=== PATIENT | male | born 1980 | race Caucasian/White ===

== ENCOUNTER 2018-03-30 10:08 | Emergency (ER) | payer OTHER ==
[~2018-03-30] VITALS: Ht 175.3 cm; Wt 84.2 kg
[~2018-03-30 10:08] MED LIST: ASPERDRINK81 MG PO; BUTALB-APAP-CA1 EACH PO; DILAUDID2 MG PO; EFFEXOR37.5 MG PO; KEFLEX500 MG PO; LISINOPRIL10 MG PO; MOTRIN800 MG PO; OXYCODONE HCL5 MG PO; PERCOCET 5/31 TABLET PO; PRAVASTATIN SOD40 MG PO; TRAMADOL HCL50 MG PO; ULTRAM50 MG PO; ZOFRAN ODT8 MG PO
[2018-03-30 10:49] LABS: HEMATOCRIT 37.9 % (38.0-50.0); HEMOGLOBIN 13.5 G/DL (12.5-16.6); MCH 31.2 PG (29.0-34.0); MCHC 35.6 G/DL (30.0-36.0); MCV 87.5 FL (86-99); PLATELET COUNT 174 K/uL (156-360); RBC DIS.WIDTH-CV 12.4 % (11.8-14.6); RBC DIS.WIDTH-SD 39.9 % (39-53); RED BLOOD COUNT 4.33 M/uL (4.00-5.50); WHITE BLOOD COUNT 6.2 K/uL (4.1-10.2)
[2018-03-30 11:07] LABS: CHLORIDE 108 mEq/L (99-109); POTASSIUM 3.9 mEq/L (3.7-5.4); SODIUM 140 mEq/L (136-147)
[2018-03-30 11:08] LABS: GLUCOSE 96 mg/dL (70-99)
[2018-03-30 11:12] LABS: CREATININE 0.9 mg/dL (0.6-1.3); GFR ESTIMATE (CALCULATED) > 59 mL/min/ (58.99-99999)
[2018-03-30 11:13] LABS: UREA NITROGEN (BUN) 21 mg/dL (9-23)
[2018-03-30 13:15] VITALS: BP 135/89
== END 2018-03-30 13:19 | disposition home or self-care (01) ==
LOC: EME 10:08
DX: K62.5 Hemorrhage of anus and rectum (principal); R10.31 Right lower quadrant pain; R10.32 Left lower quadrant pain; K76.0 Fatty (change of) liver, not elsewhere classified; R19.7 Diarrhea, unspecified; I10 Essential (primary) hypertension; E78.5 Hyperlipidemia, unspecified
CPT/HCPCS: 74177; 80048; 85027; 86850; 86900; 86901; 99281; 99284; J7030